=== PATIENT | female | born 1990 | race American Indian/Alaskan Native ===

== ENCOUNTER 2016-07-16 12:31 | Emergency (ER) | payer MEDICAID ==
[2016-07-16 12:31] VITALS: BMI 37.1
[2016-07-16 12:44] VITALS: BP 115/75; PULSE 90; RESP 16; TEMP 98.8; O2SAT 99
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
== END 2016-07-16 14:11 | disposition home or self-care (01) ==
LOC: ED 12:31
DX: M25.552 Pain in left hip (principal)
CPT/HCPCS: 96372; 99283; J1885